=== PATIENT | male | born 1985 | race Caucasian/White ===

== ENCOUNTER 2021-02-12 09:27 | Emergency (ER) | payer BC, SELFPAY ==
[2021-02-12 09:51] VITALS: BP 126/70; PULSE 67; RESP 16; TEMP 36.8; O2SAT 97; BMI 23.5
--- NOTE | 2021-02-12 10:16 | ED.GENADULT ---
HPI - General Adult General Chief complaint: Skin/Abscess/Foreign Body Stated complaint: ? tattoo infected Time Seen by Provider: 02/12/21 10:16 Source: patient Mode of arrival: ambulatory Limitations: no limitations History of Present Illness HPI narrative: Patient is here today for complaining of redness and rash like area surrounding where he had his new tattoo done on Tuesday. Patient reports no pruritus, some clear drainage and red and raised like rash. Patient denies fever or chills. The rash is not spreading Related Data Previous Rx's Medication Instructions Recorded cephalexin 500 mg capsule 500 mg PO QID 7 Days #28 cap 02/12/21 doxycycline hyclate 100 mg capsule 100 mg PO BID #14 cap 02/12/21 Allergies Allergy/AdvReac Type Severity Reaction Status Date / Time No Known Allergies Allergy Unverified 02/14/20 15:33 Review of Systems Review of Systems: Constitutional : No Weight loss, No Fever, No Chills, No Night Sweats, No Fatigue, No Malaise ENT/Mouth : No Hearing loss, No Ear Pain, No Nasal Congestion, No Sinus Pain, No Hoarseness, No sore throat, No Rhinorrhea, No Swallowing Difficulty Eyes: No Eye Pain, No Swelling, No Redness, No Foreign Body, No Discharge, No Vision Changes Cardiovascular : No Chest Pain, No SOB, No Dyspnea on Exertion, No Orthopnea, No Edema, No Palpitations Respiratory : No Cough, No Sputum, No Wheezing, No Smoke Exposure, No Dyspnea Gastrointestinal : No Nausea, No Vomiting, No Diarrhea, No Constipation, No abdominal Pain, No Hematochezia, No Melena Genitourinary : no irregular bleeding, No Dysuria, No Urinary Frequency, No Hematuria, No Urinary Incontinence, No Urgency, No Flank Pain, No Urinary Flow Changes, No Hesitancy Musculoskeletal : No joint pain, No Myalgias, No Joint Swelling Skin : No Skin Lesions, rash, redness to his left leg Yes all other systems are reviewed and are negative [facility] Past Medical History Medical History (Updated 02/12/21 @ 10:29 by ALCIDES Soto-) No known health problems Social History Social History Advance Directives: No Physical Exam Vital Signs: Vital Signs: Last Vital Signs Temp 98.3 F 02/12/21 09:51 Pulse 67 02/12/21 09:51 Resp 16 02/12/21 09:51 BP 126/70 02/12/21 09:51 Pulse Ox 97 02/12/21 09:51 Body Mass Index 23.5 Const: General: healthy appearing, no acute distress and well developed Nutritional Appearance: well nourished Orientation/consciousness: patient oriented x3 HENMT: Head: Yes normal to inspection, Yes normocephalic and Yes atraumatic Ears: hearing grossly normal bilaterally General nose exam: Normal external nose present Face and sinus: Yes normal facial exam Mouth: Normal oral and palatal mucosa present Neck: Neck: Yes normal visual inspection, Yes full ROM and Yes trachea midline Thyroid: Thyroid normal Resp: Auscultation: clear to auscultation bilaterally Cardio: Rate: regular rate Rhythm: regular rhythm Heart sounds: S1 normal heart sound present and S2 normal heart sound present GI: Inspection: Yes normal to inspection and No distended Palpation (GI): No hepatosplenomegaly present Auscultation: normal bowel sounds Skin: General skin exam: elasticity normal, turgor normal, dry skin and other (Left thigh red rash like area where new tattoo was done on Tuesday. ) Neuro: General: patient oriented x3 Course Course Course Narrative: 35 years old male is here today for left thigh rash that started right after he got new tattoo on Tuesday. Patient denies pruritus, spreading. Denies fever or chills. Will medicate him with doxycycline and Keflex and send him home on 7 day therapy. Discharge Plan Discharge Clinical Impression: Cellulitis Qualifiers: Site of cellulitis: extremity Site of cellulitis of extremity: lower extremity Laterality: left Qualified Code(s): L03.116 - Cellulitis of left lower limb Patient Disposition: Home, Self-Care Instructions: Cellulitis (ED) Additional Instructions: You were seen here today for possible infected tatoo. You will be placed on antibiotics for 7 days. Make sure that you finish all of the antibiotics. You may return to emergency department if your symptoms will get worse or if your experience any additional concerning symptoms. Prescriptions: New doxycycline hyclate 100 mg capsule 100 mg PO BID Qty: 14 RF: 0 cephalexin 500 mg capsule 500 mg PO QID 7 Days Qty: 28 RF: 0
[2021-02-12] MEDS: cephALEXin 500 MG CAPSULE PO (10:41)
== END 2021-02-12 10:45 | disposition home or self-care (01) ==
PROVIDERS: Emergency Provider Emergency Medicine; PCP Internal Medicine
DX: L03.116 Cellulitis of left lower limb (principal); Z79.899 Other long term (current) drug therapy
CPT/HCPCS: 99283

== ENCOUNTER 2021-05-18 10:56 | Outpatient (REF) | payer BC, SELFPAY ==
[2021-05-18 10:59] LABS: MANUAL DIFF FLAG NO
[2021-05-18 11:19] LABS: Basophils Percent Auto 0.4 % (0-2); Eosinophils Absolute Auto 0.2 X10*3/uL (0.0-0.4); Eosinophils Percent Auto 2.2 % (0-4); Hemoglobin 16.6 g/dl (14.0-18.0); Imm Gran Abs Auto 0.03 X10*3/uL (0.00-0.03); Imm Gran Pct Auto 0.3 % (0.0-0.4); Lymphocytes Absolute Auto 2.9 X10*3/uL (1.2-4.9); Lymphocytes Percent Auto 32.7 % (20-40); Mean Corpuscular HGB Conc 33.9 g/dl (31.0-36.0); Mean Corpuscular Hemoglobin 31.9 pg (27.0-33.0); Mean Platelet Volume 10.7 fL (9.4-12.4); Monocytes Absolute Auto 0.8 X10*3/uL (0.1-1.2); Monocytes Percent Auto 9.4 % (2-11); Neutrophils Absolute Auto 4.9 x10*3/uL (2.0-8.3); Platelet Count 250 X10*3/uL (160-400); Red Blood Count 5.21 X10*6/uL (4.60-5.80); Red Cell Distribution Width 11.6 % (11.0-16.0)
[2021-05-18 11:24] LABS: Appearance Urine CLEAR; Color Urine YELLOW; Glucose Urine UA NEG (NEG); Leukocyte Esterase Urine NEG (NEG); Nitrite Urine NEG (NEG); PH 6.5 (5.0-8.0); Specific Gravity - Urine 1.015 (1.005-1.025); Urine Blood NEG (NEG); Urine Ketones NEG (NEG); Urine Protein NEG (NEG-TRACE)
[2021-05-18 11:29] LABS: Alanine Aminotransferase 22 U/L (0-40); Albumin Level 4.4 g/dL (3.5-5.0); Alkaline Phosphatase 71 U/L (39-117); Anion Gap 11 (12-20); Aspartate Amino Transferase 23 U/L (5-37); Bilirubin Total 0.6 mg/dL (0.0-1.0); Blood Urea Nitrogen 14 mg/dL (9-16); Calcium 9.7 mg/dL (8.4-10.2); Carbon Dioxide 26 mmol/L (22-29); Chloride 107 mmol/L (96-108); Cholesterol 226 mg/dL; Estimated Glomerular Filt Rate > 60; Glucose Fasting 84 mg/dL (60-99); HDL Cholesterol 63 mg/dL; LDL Cholesterol Calculated 144 mg/dl; Potassium 4.2 mmol/L (3.3-5.1); Sodium 140 mmol/L (135-145); Total Protein 7.5 g/dL (6.5-8.0); Triglycerides 98 mg/dL
== END 2021-05-18 10:57 | disposition home or self-care (01) ==
LOC: HO.LNP 10:56
PROVIDERS: PCP Internal Medicine; Visit Provider Internal Medicine
DX: Z00.00 Encounter for general adult medical examination without abnormal findings (principal)
CPT/HCPCS: 80053; 80061; 81003; 85025

== ENCOUNTER 2021-12-25 10:38 | Outpatient (REF) | payer BC, SELFPAY ==
--- NOTE | ~2021-12-25 | US_ITS ---
EXAMINATION: US SCROTUM CLINICAL INFORMATION: Testicular nodule. COMPARISON: None TECHNIQUE: A sonogram of the scrotum was performed assessing sebastian-scale appearance and color Doppler flow. Spectral Doppler analysis of the arterial and venous flow were performed in the testes bilaterally. FINDINGS: RIGHT: Right testicle measures 4.6 x 2.3 x 3.4 cm, volume 18.8 mL. No focal testicular parenchymal lesions are visualized. Spectral Doppler analysis of the arterial and venous flow is normal in the right testis. Right epididymal head is asymmetrically increased in size. No right hydrocele or varicocele is seen. Right epididymal Doppler flow is normal. LEFT: Left testicle measures 4.0 x 2.2 x 3.4 cm, volume 15.6 mL. No focal testicular parenchymal lesions are visualized. Spectral Doppler analysis of the arterial and venous flow is normal in the left testis. Left epididymal head is normal in size. No left hydrocele or varicocele is seen. Left epididymal Doppler flow is normal. OTHERS: In the area of the referred nodule by the patient, there is a 0.3 x 0.2 x 0.4 cm simple appearing cyst along the surface/capsule of the right testicle. US/US scrotum IMPRESSION: The palpable abnormality as pointed by the patient appears to corresponds to a very small cyst along the capsule of the right testicle. The right epididymal head appears to be mildly asymmetrically increased in size when compared to the left but without significant hyperemia. This finding is nonspecific and could be associated with early epididymitis in the appropriate clinical setting or anatomic variants. Recommend a follow-up examination to reassess if clinically deemed appropriate. If the palpable abnormality increases or becomes symptomatic, an interval ultrasound or cross-sectional imaging is recommended to reassess.
== END 2021-12-25 10:39 | disposition home or self-care (01) ==
LOC: HO.US 10:38
PROVIDERS: PCP Internal Medicine; Visit Provider Internal Medicine
DX: N50.89 Other specified disorders of the male genital organs (principal)
CPT/HCPCS: 76870

== ENCOUNTER 2022-03-31 10:09 | Outpatient (REF) | payer BC, SELFPAY ==
--- NOTE | 2022-03-31 10:21 | ECG_ITS ---
Test Reason : qtc check Blood Pressure : / mmHG Vent. Rate : 062 BPM Atrial Rate : 062 BPM P-R Int : 142 ms QRS Dur : 096 ms QT Int : 374 ms P-R-T Axes : 039 047 037 degrees QTc Int : 379 ms Normal sinus rhythm Normal ECG No previous ECGs available Referred By: Randi Whitmore Electronically Signed By:SAVI VALLE MD
[2022-03-31 10:27] LABS: MANUAL DIFF FLAG NO
[2022-03-31 10:46] LABS: Basophils Absolute Auto 0.1 X10*3/uL (0.0-0.2); Basophils Percent Auto 0.5 % (0-2); Eosinophils Absolute Auto 0.2 X10*3/uL (0.0-0.4); Eosinophils Percent Auto 1.3 % (0-4); Hematocrit 50.2 % (42.0-52.0); Hemoglobin 16.6 g/dl (14.0-18.0); Imm Gran Abs Auto 0.04 X10*3/uL (0.00-0.03); Imm Gran Pct Auto 0.4 % (0.0-0.4); Lymphocytes Absolute Auto 2.7 X10*3/uL (1.2-4.9); Lymphocytes Percent Auto 24.2 % (20-40); Mean Corpuscular HGB Conc 33.1 g/dl (31.0-36.0); Mean Corpuscular Hemoglobin 30.8 pg (27.0-33.0); Mean Corpuscular Volume 93.1 fL (80.0-98.0); Mean Platelet Volume 10.4 fL (9.4-12.4); Monocytes Absolute Auto 0.8 X10*3/uL (0.1-1.2); Monocytes Percent Auto 7.2 % (2-11); Neutrophils Absolute Auto 7.4 x10*3/uL (2.0-8.3); Neutrophils Percent Auto 66.4 % (45-73); Platelet Count 245 X10*3/uL (160-400); Red Blood Count 5.39 X10*6/uL (4.60-5.80); White Blood Count 11.2 X10*3/uL (4.8-10.8)
[2022-03-31 11:21] LABS: Alanine Aminotransferase 24 U/L (0-40); Albumin Level 4.7 g/dL (3.5-5.0); Alkaline Phosphatase 84 U/L (39-117); Anion Gap 13 (12-20); Aspartate Amino Transferase 22 U/L (5-37); Bilirubin Total 0.3 mg/dL (0.0-1.0); Blood Urea Nitrogen 11 mg/dL (9-16); Carbon Dioxide 25 mmol/L (22-29); Chloride 104 mmol/L (96-108); Estimated Glomerular Filt Rate > 60; Glucose Random 83 mg/dL (60-115); Potassium 4.4 mmol/L (3.3-5.1); Sodium 138 mmol/L (135-145); Total Protein 7.7 g/dL (6.5-8.0)
[2022-03-31 11:32] LABS: Thyroid Stimulating Hormone 1.27 uIU/mL (0.32-4.0)
== END 2022-03-31 10:10 | disposition home or self-care (01) ==
LOC: HO.LAB 10:09
PROVIDERS: PCP Internal Medicine; Visit Provider Psychiatry & Neurology Psychiatry
DX: Z79.899 Other long term (current) drug therapy (principal)
CPT/HCPCS: 36415; 80053; 84443; 85025; 93005

== ENCOUNTER 2022-05-03 14:39 | Outpatient (REF) | payer BC, SELFPAY ==
[2022-05-03 16:03] LABS: Lithium 0.19 mmol/L (0.60-1.20)
[2022-05-03 16:34] LABS: Anion Gap 13 (12-20); Blood Urea Nitrogen 13 mg/dL (9-16); Carbon Dioxide 27 mmol/L (22-29); Chloride 103 mmol/L (96-108); Estimated Glomerular Filt Rate > 60; Glucose Random 89 mg/dL (60-115); Potassium 4.7 mmol/L (3.3-5.1); Sodium 138 mmol/L (135-145); Thyroid Stimulating Hormone 1.98 uIU/mL (0.32-4.0)
== END 2022-05-03 14:40 | disposition home or self-care (01) ==
LOC: HO.LAB 14:39
PROVIDERS: PCP Internal Medicine; Visit Provider Psychiatry & Neurology Psychiatry
DX: Z79.899 Other long term (current) drug therapy (principal)
CPT/HCPCS: 36415; 80048; 80178; 84443

== ENCOUNTER 2022-06-08 11:31 | Outpatient (REF) | payer BC, SELFPAY ==
[2022-06-08 13:11] LABS: Alanine Aminotransferase 18 U/L (0-40); Albumin Level 4.8 g/dL (3.5-5.0); Alkaline Phosphatase 89 U/L (39-117); Anion Gap 14 (12-20); Aspartate Amino Transferase 22 U/L (5-37); Bilirubin Total 0.4 mg/dL (0.0-1.0); Blood Urea Nitrogen 14 mg/dL (9-16); Carbon Dioxide 26 mmol/L (22-29); Chloride 103 mmol/L (96-108); Estimated Glomerular Filt Rate > 60; Glucose Random 89 mg/dL (60-115); Lithium 0.35 mmol/L (0.60-1.20); Potassium 4.8 mmol/L (3.3-5.1); Sodium 138 mmol/L (135-145); Total Protein 7.6 g/dL (6.5-8.0)
[2022-06-08 13:33] LABS: Thyroid Stimulating Hormone 1.81 uIU/mL (0.32-4.0)
== END 2022-06-08 11:32 | disposition home or self-care (01) ==
LOC: HO.LAB 11:31
PROVIDERS: PCP Internal Medicine; Visit Provider Psychiatry & Neurology Psychiatry
DX: Z79.899 Other long term (current) drug therapy (principal)
CPT/HCPCS: 36415; 80053; 80178; 84443

== ENCOUNTER 2022-07-16 10:06 | Outpatient (REF) | payer BC, SELFPAY ==
[2022-07-16 11:07] LABS: Lithium 0.54 mmol/L (0.60-1.20)
[2022-07-16 11:13] LABS: Alanine Aminotransferase 19 U/L (0-40); Albumin Level 4.3 g/dL (3.5-5.0); Alkaline Phosphatase 94 U/L (39-117); Anion Gap 13 (12-20); Aspartate Amino Transferase 19 U/L (5-37); Bilirubin Total 0.3 mg/dL (0.0-1.0); Blood Urea Nitrogen 13 mg/dL (9-16); Calcium 9.3 mg/dL (8.4-10.2); Carbon Dioxide 25 mmol/L (22-29); Chloride 105 mmol/L (96-108); Estimated Glomerular Filt Rate > 60; Glucose Random 126 mg/dL (60-115); Potassium 4.2 mmol/L (3.3-5.1); Sodium 139 mmol/L (135-145); Total Protein 6.7 g/dL (6.5-8.0)
== END 2022-07-16 10:07 | disposition home or self-care (01) ==
LOC: HO.LAB 10:06
PROVIDERS: PCP Internal Medicine; Visit Provider Psychiatry & Neurology Psychiatry
DX: Z79.899 Other long term (current) drug therapy (principal)
CPT/HCPCS: 36415; 80053; 80178; 84443

== ENCOUNTER 2023-01-17 10:56 | Outpatient (REF) | payer BC, SELFPAY ==
[2023-01-17 11:02] LABS: MANUAL DIFF FLAG NO
[2023-01-17 11:28] LABS: Basophils Percent Auto 0.5 % (0-2); Eosinophils Absolute Auto 0.2 X10*3/uL (0.0-0.4); Hematocrit 50.7 % (42.0-52.0); Imm Gran Abs Auto 0.02 X10*3/uL (0.00-0.03); Imm Gran Pct Auto 0.2 % (0.0-0.4); Lymphocytes Absolute Auto 3.3 X10*3/uL (1.2-4.9); Mean Corpuscular HGB Conc 33.5 g/dl (31.0-36.0); Mean Corpuscular Hemoglobin 30.7 pg (27.0-33.0); Mean Corpuscular Volume 91.5 fL (80.0-98.0); Mean Platelet Volume 10.2 fL (9.4-12.4); Monocytes Absolute Auto 0.6 X10*3/uL (0.1-1.2); Monocytes Percent Auto 7.8 % (2-11); Neutrophils Absolute Auto 3.9 x10*3/uL (2.0-8.3); Neutrophils Percent Auto 48.5 % (45-73); Platelet Count 237 X10*3/uL (160-400); Red Blood Count 5.54 X10*6/uL (4.60-5.80); Red Cell Distribution Width 12.1 % (11.0-16.0); White Blood Count 8.1 X10*3/uL (4.8-10.8)
[2023-01-17 11:29] LABS: Appearance Urine Clear; Color Urine Yellow; Glucose Urine UA Negative (Negative); Leukocyte Esterase Urine Negative (Negative); Nitrite Urine Negative (Negative); PH 6.5 (5.0-9.0); Urine Blood Negative (Negative); Urine Ketones Negative (Negative); Urine Protein Negative (Neg-Trace)
[2023-01-17 11:35] LABS: Bacteria Urine None Seen (None Seen); Hyaline Casts Urine 0-2 /LPF (0-2); RBC Urine 0-2 /HPF (0-2); Squamous Epithelial Cell Urine 0-2 /HPF (0-2); WBC Urine 0-5 /HPF (0-5)
[2023-01-17 11:37] LABS: Alanine Aminotransferase 21 U/L (0-40); Albumin Level 4.5 g/dL (3.5-5.0); Alkaline Phosphatase 65 U/L (39-117); Anion Gap 11 (12-20); Aspartate Amino Transferase 18 U/L (5-37); Bilirubin Total 0.5 mg/dL (0.0-1.0); Blood Urea Nitrogen 13 mg/dL (9-16); Carbon Dioxide 25 mmol/L (22-29); Chloride 110 mmol/L (96-108); Cholesterol 236 mg/dL (<200); Estimated Glomerular Filt Rate > 60; Glucose Fasting 89 mg/dL (60-99); HDL Cholesterol 54 mg/dL (>40); LDL Cholesterol Calculated 158 mg/dL (<100); Potassium 4.3 mmol/L (3.3-5.1); Sodium 142 mmol/L (135-145); Total Protein 7.6 g/dL (6.5-8.0); Triglycerides 120 mg/dL (<150)
== END 2023-01-17 10:57 | disposition home or self-care (01) ==
LOC: HO.LNP 10:56
PROVIDERS: Visit Provider Internal Medicine
DX: Z00.00 Encounter for general adult medical examination without abnormal findings (principal); Z20.2 Contact with and (suspected) exposure to infections with a predominantly sexual mode of transmission
CPT/HCPCS: 80053; 80061; 81001; 85025

== ENCOUNTER 2023-07-25 10:40 | Outpatient (REF) | payer BC, SELFPAY ==
[2023-07-25 12:08] LABS: HBS Num1 > 1000.00 mIU/mL (0-7.99); HBc Num1 0.03 S/CO (0.00-0.79); HBsAGNum1 0.33 S/CO (0.00-0.99); HIV AB/AG Nonreactive (Nonreactive); HIV Num 1 0.06 S/CO (0.00-0.99); Hepatitis A Antibody IgM 0.27 Index (0-0.79); Hepatitis B Core Antibody Nonreactive (Nonreactive); Hepatitis B Surface Antigen Negative (Negative); ~HepC Num1 0.08 S/CO (0.00-0.79); ~Hepatitis A Antibody IgM Nonreactive (Nonreactive); ~Hepatitis B Surface Antibody REACTIVE (Nonreactive); ~Hepatitis C Antibody Nonreactive (Nonreactive)
[2023-07-25 15:04] LABS: CT PCR NOT DETECTED (Not Detect.); NG PCR NOT DETECTED (Not Detect.)
== END 2023-07-25 10:41 | disposition home or self-care (01) ==
LOC: HO.LAB 10:40
PROVIDERS: PCP Internal Medicine; Visit Provider Internal Medicine
DX: Z11.4 Encounter for screening for human immunodeficiency virus [HIV] (principal); Z20.2 Contact with and (suspected) exposure to infections with a predominantly sexual mode of transmission
CPT/HCPCS: 0353U; 86704; 86706; 86709; 86803; 87340; 87389

== ENCOUNTER 2024-01-23 10:32 | Outpatient (REF) | payer BC, SELFPAY ==
[2024-01-23 10:39] LABS: MANUAL DIFF FLAG NO
[2024-01-23 10:46] LABS: Basophils Percent Auto 0.5 % (0-2); Eosinophils Absolute Auto 0.2 X10*3/uL (0.0-0.4); Eosinophils Percent Auto 2.7 % (0-4); Hematocrit 49.1 % (42.0-52.0); Hemoglobin 16.6 g/dl (14.0-18.0); Imm Gran Abs Auto 0.03 X10*3/uL (0.00-0.03); Imm Gran Pct Auto 0.4 % (0.0-0.4); Lymphocytes Absolute Auto 2.8 X10*3/uL (1.2-4.9); Lymphocytes Percent Auto 37.4 % (20-40); Mean Corpuscular HGB Conc 33.8 g/dl (31.0-36.0); Mean Corpuscular Hemoglobin 31.7 pg (27.0-33.0); Mean Corpuscular Volume 93.7 fL (80.0-98.0); Mean Platelet Volume 10.3 fL (9.4-12.4); Monocytes Absolute Auto 0.7 X10*3/uL (0.1-1.2); Monocytes Percent Auto 9.5 % (2-11); Neutrophils Absolute Auto 3.7 x10*3/uL (2.0-8.3); Neutrophils Percent Auto 49.5 % (45-73); Platelet Count 228 X10*3/uL (160-400); Red Blood Count 5.24 X10*6/uL (4.60-5.80); Red Cell Distribution Width 11.7 % (11.0-16.0); White Blood Count 7.5 X10*3/uL (4.8-10.8)
[2024-01-23 10:47] LABS: Appearance Urine Clear; Color Urine Yellow; Glucose Urine UA Negative (Negative); Leukocyte Esterase Urine Negative (Negative); Nitrite Urine Negative (Negative); Urine Blood Negative (Negative); Urine Ketones Negative (Negative); Urine Protein Trace mg/dL (Neg-Trace)
[2024-01-23 10:49] LABS: Bacteria Urine None Seen (None Seen); Hyaline Casts Urine 0-2 /LPF (0-2); RBC Urine 0-2 /HPF (0-2); Squamous Epithelial Cell Urine 0-2 /HPF (0-2); WBC Urine 0-5 /HPF (0-5)
[2024-01-23 11:36] LABS: Alanine Aminotransferase 20 U/L (0-40); Albumin Level 4.4 g/dL (3.5-5.0); Alkaline Phosphatase 66 U/L (39-117); Anion Gap 14 (12-20); Aspartate Amino Transferase 20 U/L (5-37); Bilirubin Total 0.4 mg/dL (0.0-1.0); Blood Urea Nitrogen 13 mg/dL (9-16); Calcium 9.7 mg/dL (8.4-10.2); Carbon Dioxide 24 mmol/L (22-29); Chloride 107 mmol/L (96-108); Cholesterol 229 mg/dL (<200); Estimated Glomerular Filt Rate > 60; Glucose Fasting 82 mg/dL (60-99); HDL Cholesterol 59 mg/dL (>40); LDL Cholesterol Calculated 149 mg/dL (<100); Potassium 3.8 mmol/L (3.3-5.1); Sodium 141 mmol/L (135-145); Total Protein 7.5 g/dL (6.5-8.0); Triglycerides 107 mg/dL (<150)
== END 2024-01-23 10:33 | disposition home or self-care (01) ==
LOC: HO.LNP 10:32
PROVIDERS: Visit Provider Internal Medicine
DX: Z00.00 Encounter for general adult medical examination without abnormal findings (principal)
CPT/HCPCS: 80053; 80061; 81001; 85025

== ENCOUNTER 2025-04-20 13:14 | Emergency (ER) | payer BC, SELFPAY ==
--- OUTSIDE RECORDS SUMMARY | 2024-01-23 03:00 | XMS_ITS ---
Author Organization Chava Reddy MD Address [address] [place], [place] [id number] Care Team Providers Care Records Section Supervisor Name Role Phone Chava Reddy Primary Care Provider Results Component Value Reference Range Notes Complete Blood Count Auto Di ff Reviewed date:01/23/2024 12:40:17 PM Interpretation: Performing Lab:[facility], [address] [place] [id number] Notes/Report: White Blood Count 7.5 4.8-10.8 X10*3/uL Red Blood Count 5.24 4.60-5.80 X10*6/uL Hemoglobin 16.6 14.0-18.0 g/dl Hematocrit 49.1 42.0-52.0 % Mean Corpuscular Volume 93.7 80.0-98.0 fL Mean Corpuscular Hemoglobin 31.7 27.0-33.0 pg Mean Corpuscular HGB Conc 33.8 31.0-36.0 g/dl Red Cell Distribution Width 11.7 11.0-16.0 % Platelet Count 228 160-400 X10*3/uL Mean Platelet Volume 10.3 9.4-12.4 fL Neutrophils Percent Auto 49.5 45-73 % Imm Gran Pct Auto 0.4 0.0-0.4 % Lymphocytes Percent Auto 37.4 20-40 % Monocytes Percent Auto 9.5 2-11 % Eosinophils Percent Auto 2.7 0-4 % Basophils Percent Auto 0.5 0-2 % NRBC Pct Auto 0.0 0.0-0.2 /100WBC Neutrophils Absolute Auto 3.7 2.0-8.3 x10*3/u L Imm Gran Abs Auto 0.03 0.00-0.03 X10*3/uL Lymphocytes Absolute Auto 2.8 1.2-4.9 X10*3/u L Monocytes Absolute Auto 0.7 0.1-1.2 X10*3/uL Eosinophils Absolute Auto 0.2 0.0-0.4 X10*3/u L Basophils Absolute Auto 0.0 0.0-0.2 X10*3/uL NRBC Abs Auto 0.000 0.0-0.012 X10*3/uL Comprehensive Tibbie. Panel Fa st Reviewed date:01/23/2024 12:23:12 PM Interpretation: Performing Lab:[address] [phone] Notes/Report: Sodium 141 135-145 mmol/L Potassium 3.8 3.3-5.1 mmol/L Chloride 107 96-108 mmol/L Carbon Dioxide 24 22-29 mmol/L Anion Gap 14 12-20 Blood Urea Nitrogen 13 9-16 mg/dL Creatinine 0.91 0.5-1.4 mg/dL Estimated Glomerular Filt Rate > 60 NOTE: For -Georgian individuals, multiply the result by 1.210. Chronic Kidney Disease: Estimated GFR < 60 mL/min/1.73m2 Severe Kidney Disease: Estimated GFR < 15 mL/min/1.73m2 Glucose Fasting 82 60-99 mg/dL Calcium 9.7 8.4-10.2 mg/dL Bilirubin Total 0.4 0.0-1.0 mg/dL Aspartate Amino Transferase 20 5-37 U/L Alanine Aminotransferase 20 0-40 U/L Total Protein 7.5 6.5-8.0 g/dL Albumin Level 4.4 3.5-5.0 g/dL Alkaline Phosphatase 66 39-117 U/L Lipid Panel Reviewed date:01/23/2024 12:22:25 PM Interpretation: Performing Lab:[address] [id number] Notes/Report: Triglycerides 107 <150 mg/dL Desirable Triglyceride: less than 150 mg/dL Borderline High Triglyceride 150-199 mg/dL High Triglyceride: 200-499 mg/dL Very High Triglyceride: greater than or equal to 5OO mg/dL Cholesterol 229 <200 mg/dL Desirable Cholesterol: less than 200 mg/dL Borderline High Cholesterol: 200-239 mg/dL High Cholesterol: greater than 239 mg/dL LDL Cholesterol Calculated 149 <100 mg/dL Desirable LDL: less than 100 mg/dL Near Optimal/Above Optimal LDL: 110-129 mg/dL Borderline High LDL: 130-159 mg/dL High LDL: 160-189 mg/dL Very High LDL: greater than or equal to 190 mg/dL HDL Cholesterol 59 >40 mg/dL Desirable HDL: greater than 40 mg/dL Note: This HDL assay may give artificially low results in patients with liver disease. UA ClnCatch+Micro w/rflx Cul t Reviewed date:01/23/2024 12:39:38 PM Interpretation: Performing Lab:[facility], [address] [place] [phone] Notes/Report: Urine, Clean Catch Color Urine Yellow Appearance Urine Clear PH 6.0 5.0-9.0 Glucose Urine UA Negative Negative mg/dL Urine Blood Negative Negative Specific [place] - Urine 1.020 1.005-1.025 Urine Protein Trace Neg-Trace mg/dL Urine Ketones Negative Negative mg/dL Nitrite Urine Negative Negative Leukocyte Esterase Urine Negative Negative RBC Urine 0-2 0-2 /HPF WBC Urine 0-5 0-5 /HPF Squamous Epithelial Cell Urine 0-2 0-2 /HPF Bacteria Urine None Seen None Seen Hyaline Casts Urine 0-2 0-2 /LPF REASON FOR VISIT FASTING LABS Medications Medication SIG (Take, Route, Frequency, Duration) Notes Start Date End Date Status Citalopram Hydrobromide 10 MG TAKE 1 TABLET BY MOUTH EVERY DAY Orally Once a day Active SEROquel 25 MG 1 tablet at bedtime Orally Once a day Active Wellbutrin SR 150 MG 1 tablet in the mor sanjay Orally Once a day for 30 day(s) 03/03/2020 Not-Taking Ocuflox 0.3 % 1 drop into affected eye Ophthalmic Four times a day for 10 days 12/08/2021 Not-Taki ng Tadalafil 10 MG 1 tablet as needed Orally Once a day as needed 09/19/2020 Active Encounters Encounter Location Date Provider Diagnosis Chava Reddy MD [address] [place] [address] Drive [address] [place], [place] [phone] 01/23/2024 Chava Reddy Blood tests for routine general physical examination Z00.00 Assessments Encounter Date Diagnosis (ICD Code) Assessment Notes Treatment Notes Treatment Clinical Notes Section Notes 01/23/2024 Blood tests for routine general physical examination (ICD-10 - Z00.00) Plan Of Treatment Next Appt Details Provider Name:Chava moore, 06/18/2025 07:00:00 AM, [address], [address], [place], [place], [phone], Provider Name:Chava moore, 06/24/2025 09:30:00 AM, [address], [address], [place], [place], [phone], Progress Notes * MARCIALKavon SDOB: (39 yo M)Acc No.[id number]:01/23/2024 Progress Note Patient: Kavon PARRA Provider: Johnny Reddy MD :1985 A ge:38 Y S ex:Male Date:01/23/2024 Address:[address] [place], [place] [id number] Subjective: * Chief Complaints: * 1 . FASTING LABS. * Medical History: * Medications: T aking Tadalafil 10 MG Tablet 1 tablet as needed Orally Once a day as needed , Taking SEROquel 25 MG Tablet 1 tablet at bedtime Orally Once a day , Taking Citalopram Hydrobromide 10 MG Tablet TAKE 1 TABLET BY MOUTH EVERY DAY Orally Once a day , Not-Taking/PRN Ocuflox 0.3 % Solution 1 drop into affected eye Ophthalmic Four times a day , Not-Taking/PRN Wellbutrin SR 150 MG Tablet Extended Release 12 Hour 1 tablet in the morning Orally Once a day Objective: * Vitals: Assessment: * Assessment: 1. B lood tests for routine general physical examination - Z00.00 (Primary) Plan: * Treatment: * Procedure Codes: 3 6415 VENIPUNCT, ROUTINE* * * The named appointment provid er may or may not be the originator of this progress note, and it is not deemed complete until electronically signed by the appointment provider. Sign off status: Pending * Provider: Johnny Reddy MD Date: 0 01/23/2024 Generated for Jj aponte/Elly/Leonaitting on: 1 06/20/2024 01:47 PM EST
--- OUTSIDE RECORDS SUMMARY | 2024-06-07 09:30 | XMS_ITS ---
Author Organization Chava Reddy MD Address [address] [place], [place] [id number] Care Team Providers Care Dumpster Operator Name Role Phone Chava Reddy Primary Care Provider [phone] Allergies No Known Allergies Results Component Value Reference Range Notes Occult Blood, Stool, Guaiac Reviewed date:06/07/2024 03:28:24 PM Interpretation:Negative Performing Lab: Notes/Report: Negative Occult Blood, Stool, Guaiac Neg REASON FOR VISIT ANNUAL EXAM, Has FMLA papers to be filled out Medications Medication SIG (Take, Route, Frequency, Duration) Notes Start Date End Date Status Citalopram Hydrobromide 10 MG TAKE 1 TABLET BY MOUTH EVERY DAY FOR 90 DAYS for 90 Active Ocuflox 0.3 % 1 drop into affected eye Ophthalmic Four times a day for 10 days 12/08/2021 Not-Taki ng Wellbutrin SR 150 MG 1 tablet in the mor sanjay Orally Once a day for 30 day(s) 03/03/2020 Not-Taking Tadalafil 10 MG 1 tablet as needed Orally Once a day as needed 09/19/2020 Active SEROquel 300 MG 1 tablet at bedtime Orally Once a day Active Social History Tobacco Use: Social History Observation Description Date Details (start date - stop date) Current Smoker NA - NA Tobacco Use/Smoking Question Answer Notes Patient is a current smoker How often do you smoke cigarettes? every day How many cigarettes a day do you smoke? 11-20 How soon after you wake up d o you smoke your first cigarette? within 5 minutes Are you interested in quitting? Thinking about q uitting Additional Findings: Tobacco User Curren t cigarette smoker, not currently using another form of tobacco Alcohol Screen Question Answer Notes Did you have a drink containing alcohol in the p ast year? No Points 0 Interpretation Negative Section Notes: alcohol free 01-10-2022 Patie nt vapes QD Vital Signs Blood pressure systolic 120 mm Hg 06/07/19 25 Blood pressure diastolic 80 mm Hg 025 Height 67 in 06/07/2024 Weight 158 lbs 06/07/2024 BMI 24.74 kg/m2 06/07/2024 weight is up 5 pounds since 08-08-23 Encounters Encounter Location Date Provider Diagnosis Chava Reddy MD [address] [place], [place] [id number] 06/07/2024 Chava Reddy Bipolar depression F31.9 ; Annual physical exam Z00.00 ; Smoker F17.200 ; Colon cancer screening Z12.11 and Depression screening Z13.31 Assessments Encounter Date Diagnosis (ICD Code) Assessment Notes Treatment Notes Treatment Clinical Notes Section Notes 06/07/2024 Bipolar depression (ICD-10 - F31.9) has a counsellor and a psychiatrist and is doing well, will continue current regiment 06/07/2024 Annual physical exam (ICD-10 - Z00.00) labs reviewed and discussed with patient 06/07/2024 Smoker (ICD-10 - F17.200) said he is thinking about quitting, reinforced need to quit 06/07/2024 Colon cancer screening (ICD-10 - Z12.11) guaiac negative 06/07/2024 Depression screening (ICD-10 - Z13.31) negative screen 06/07/2024 Other went over all t he results with him Plan Of Treatment Treatment Notes Assessment Notes Bipolar depression has a counsellor and a psychiatrist and is doing well, will continue current regiment Annual physical exam labs reviewed and d iscussed with patient Smoker said he is thinking about quitting, reinforced need to quit Colon cancer screening guaiac negative Depression screening negative screen Other went over all the re sults with him Next Appt Details Follow Up: 6 Months, Reason: Provider Name:Chava moore, 06/18/2025 07:00:00 AM, [address], [address], [place], [place], [phone], Provider Name:Chava moore, 06/24/2025 09:30:00 AM, [address], [address], [place], [place], [phone], Progress Notes * Kavon MITCHELL SDOB: (38 yo M)Acc No.[id number]:06/07/2024 Progress Notes Patient: Kavon Torres Provider: Johnny Reddy MD :1985 A ge:38 Y S ex:Male Date:06/07/2024 Address: [address], [place], [id number] Subjective: * Chief Complaints: * A NNUAL EXAMHas FMLA papers to be filled out * HPI: D epression Screening: PHQ-9 L ittle interest or pleasure in doing things S everal days, F eeling down, depressed, or hopeless S everal days, T rouble falling or staying asleep, or sleeping too much N early every day, F eeling tired or having little energy N early every day, P oor appetite or overeating N early every day, F eeling bad about yourself or that you are a failure, or have let yourself or your family down S everal days, T rouble concentrating on things, such as reading the newspaper or watching television N early every day, M oving or speaking so slowly that other people could have noticed; or the opposite, being so fidgety or restless that you have been moving around a lot more than usual S everal days, T houghts that you would be better off or of hurting yourself in some way N ot at all, T otal Score 1 6, I nterpretation M oderately Severe Depression. I nterpretation and Intervention D epression Screening Findings P ositve - Review of PHQ-9 found positive for depression, F ollow-Up for Depression : Existing condition. S ELSA Questions: SDOH Questions I n the past year have you been worried about losing housing? N o, I n the past year have you or any family members you live with been unable to get any of the following when it was really needed? Check all that apply: N one. C ommunication Needs: Communication Needs D oes the patient have a hearing impairment N o, D oes the patient have a vision impairment? N o, D oes the patient have a cognition impairment? N o. S ymptom(s): patient is a 38 yo male here for annual visit with review of recent labs and follow up of chronic issues, still with major depression and swinging more rapidly. last changes last month. when he takes the immediate relief it knocks him out. * ROS: G eneral/Constitutional: Patient denies f atigue , headache. C hange in appetite?denies. C hills d enies. F ever d enies. O phthalmologic: Blurred vision d enies. D ischarge d enies. P ain d enies. E NT: Patient denies d ecreased sense of smell , any loss of taste , sore throat. D ecreased hearing d enies. S ore throat d enies. S wollen glands d enies. E ndocrine: Cold intolerance d enies. E xcessive thirst d enies. H eat intolerance d enies. W eight loss d enies. R espiratory: Cough d enies. S hortness of breath at rest d enies. S hortness of breath with exertion d enies. W heezing d enies. C ardiovascular: Chest pain at rest d enies. C hest pain with exertion?denies. I rregular heartbeat d enies. S hortness of breath d enies. ? G astrointestinal: Abdominal pain d enies. C hange in bowel habits d enies. D iarrhea d enies. N ausea d enies. R ectal bleeding d enies. V omiting d enies . G enitourinary: Blood in urine d enies. D ifficulty urinating d enies. F requent urination d enies. M usculoskeletal: Patient denies m uscle aches. P ainful joints d enies. W eakness d enies. P eripheral Vascular: Patient denies r ed and blue toes. S kin: Dry skin d enies. I tching d enies. D enies?Mole(s), changes in moles, new moles or any lesions of concern. D enies P hotosensitivity. R matthias d enies. N eurologic: Dizziness d enies. F ainting d enies. H eadache?denies. * Medical History: * Surgical History: * Hospitalization/Major Diagno stic Procedure: * Family History: F ather: alive 67 yrs, diagnosed with Diabetes, Hypertension. M other: alive 66 yrs. 3 sister(s) . . Mother-Healthy, Denies mental health/substance abuse family history, Denies mental health/substance abuse family history, Denies mental health/substance abuse family history, No pertinent family medical history. * Social History: T obacco Use: T obacco Use/Smoking P atient is a c urrent smoker, H ow often do you smoke cigarettes? e very day, H ow many cigarettes a day do you smoke? 1 1-20, H ow soon after you wake up do you smoke your first cigarette? w ithin 5 minutes, A re you interested in quitting? T hinking about quitting, A dditional Findings: Tobacco User C urrent cigarette smoker, not currently using another form of tobacco. D rugs/Alcohol: A lcohol Screen D id you have a drink containing alcohol in the past year? N o, P oints 0 , I nterpretation N egative. M iscellaneous: C affeine: yes, frequency: 1 cup per day, 2 cups on weekend, more during winter months. no Children. no Community involvements. Exercise: yes, daily walks 10 miles. Housing: owning. Living with: significant other. Marital status: single. Occupation: works full-time. Pets: dogs x2. no Travel outside of the [place]. a lcohol free 01-10-2022 Patient vapes QD. * Medications: T akingTadalafil 10 MG Tablet 1 tablet as needed Orally Once a day as neededSEROquel 300 MG Tablet 1 tablet at bedtime Orally Once a dayCitalopram Hydrobromide 10 MG Tablet TAKE 1 TABLET BY MOUTH EVERY DAY FOR 90 DAYS Taking Tadalafil 10 MG Tablet 1 tablet as needed Orally Once a day as neededTaking SEROquel 300 MG Tablet 1 tablet at bedtime Orally Once a dayTaking Citalopram Hydrobromide 10 MG Tablet TAKE 1 TABLET BY MOUTH EVERY DAY FOR 90 DAYS Not-Taking/PRNOcuflox 0.3 % Solution 1 drop into affected eye Ophthalmic Four times a dayWellbutrin SR 150 MG Tablet Extended Release 12 Hour 1 tablet in the morning Orally Once a dayMedication List reviewed and reconciled with the patientNot-Taking/PRN Ocuflox 0.3 % Solution 1 drop into affected eye Ophthalmic Four times a dayNot-Taking/PRN Wellbutrin SR 150 MG Tablet Extended Release 12 Hour 1 tablet in the morning Orally Once a dayMedication List reviewed and reconciled with the patient * Allergies: N .K.D.A.yes[Allergies Verified] Objective: * Vitals: H t: 67, Wt:158, BMI:24.74, BP:120/80 weight is up 5 pounds since 08-08-23. * P ast Orders: L ab:Lipid Panel (Order Date - 01/23/2024) (Collection Date - 01/23/2024) Value Reference Range Triglycerides 107 <150 - mg/dL Cholesterol 229 H <200 - mg/dL LDL Cholesterol Calculated 149 H <100 - mg/dL HDL Cholesterol 59 >40 - mg/dL L ab:UA ClnCatch+Micro w/rflx Cult (Order Date - 01/23/2024) (Collection Date - 01/23/2024) Value Reference Range Color Urine Yellow - Appearance Urine Clear - PH 6.0 5.0-9.0 - Glucose Urine UA Negative Negative - mg/dL Urine Blood Negative Negative - Specific Emerson - Urine 1.020 1.005-1.025 - Urine Protein Trace Neg-Trace - mg/dL Urine Ketones Negative Negative - mg/dL Nitrite Urine Negative Negative - Leukocyte Esterase Urine Negative Negative - RBC Urine 0-2 0-2 - /HPF WBC Urine 0-5 0-5 - /HPF Squamous Epithelial Cell Urine 0-2 0-2 - /HP F Bacteria Urine None Seen None Seen - Hyaline Casts Urine 0-2 0-2 - /LPF L ab:Complete Blood Count Auto Diff (Order Date - 01/23/2024) (Collection Date - 01/23/2024) Value Reference Range White Blood Count 7.5 4.8-10.8 - X10*3/uL Red Blood Count 5.24 4.60-5.80 - X10*6/uL Hemoglobin 16.6 14.0-18.0 - g/dl Hematocrit 49.1 42.0-52.0 - % Mean Corpuscular Volume 93.7 80.0-98.0 - fL Mean Corpuscular Hemoglobin 31.7 27.0-33.0 - pg Mean Corpuscular HGB Conc 33.8 31.0-36.0 - g/ dl Red Cell Distribution Width 11.7 11.0-16.0 - % Platelet Count 228 160-400 - X10*3/uL Mean Platelet Volume 10.3 9.4-12.4 - fL Neutrophils Percent Auto 49.5 45-73 - % Imm Gran Pct Auto 0.4 0.0-0.4 - % Lymphocytes Percent Auto 37.4 20-40 - % Monocytes Percent Auto 9.5 2-11 - % Eosinophils Percent Auto 2.7 0-4 - % Basophils Percent Auto 0.5 0-2 - % NRBC Pct Auto 0.0 0.0-0.2 - /100WBC Neutrophils Absolute Auto 3.7 2.0-8.3 - x10* 3/uL Imm Gran Abs Auto 0.03 0.00-0.03 - X10*3/uL Lymphocytes Absolute Auto 2.8 1.2-4.9 - X10* 3/uL Monocytes Absolute Auto 0.7 0.1-1.2 - X10*3/ uL Eosinophils Absolute Auto 0.2 0.0-0.4 - X10* 3/uL Basophils Absolute Auto 0.0 0.0-0.2 - X10*3/ uL NRBC Abs Auto 0.000 0.0-0.012 - X10*3/uL L ab:Comprehensive [place]. Panel Fast (Order Date - 01/23/2024) (Collection Date - 01/23/2024) Value Reference Range Sodium 141 135-145 - mmol/L Bilirubin Total 0.4 0.0-1.0 - mg/dL Aspartate Amino Transferase 20 5-37 - U/L Alanine Aminotransferase 20 0-40 - U/L Total Protein 7.5 6.5-8.0 - g/dL Albumin Level 4.4 3.5-5.0 - g/dL Alkaline Phosphatase 66 39-117 - U/L Potassium 3.8 3.3-5.1 - mmol/L Chloride 107 96-108 - mmol/L Carbon Dioxide 24 22-29 - mmol/L Anion Gap 14 12-20 - Blood Urea Nitrogen 13 9-16 - mg/dL Creatinine 0.91 0.5-1.4 - mg/dL Estimated Glomerular Filt Rate > 60 - Glucose Fasting 82 60-99 - mg/dL Calcium 9.7 8.4-10.2 - mg/dL * Examination: G eneral Examination: GENERAL APPEARANCE: w ell developed, well nourished, in no acute distress. HEAD: n ormocephalic, atraumatic. EYES: p upils equal, round, reactive to light and accommodation, sclera non-icteric. EARS: n ormal. ORAL CAVITY: m ucosa moist. THROAT: c lear. NECK/THYROID: n марина supple, full range of motion, no cervical lymphadenopathy, no bruits. SKIN: w arm and dry, no suspicious lesions. HEART: r egular rate and rhythm, S1, S2 normal, no murmurs.? LUNGS: c lear to auscultation bilaterally. ABDOMEN: s oft, nontender, nondistended, bowel sounds present, normal, no organomegaly , no masses palpable. RECTAL EXAM: n ormal tone, no external hemorrhoids, no masses palpable, prostate normal, stool guaiac negative. MALE GENITOURINARY: n ot examined. EXTREMITIES: n o clubbing, cyanosis, or edema. NEUROLOGIC: n onfocal, motor strength normal upper and lower extremities, sensory exam intact. Assessment: * Assessment: 1. A nnual physical exam - Z00.00 (Primary) 2 . B ipolar depression - F31.9 3 .?Smoker - F17.200 4 . C olon cancer screening - Z12.11 5 . D epression screening - Z13.31 Plan: * Treatment: 2. B ipolar depression Notes: has a counsellor and a psychiatrist and is doing well, will continue current regiment ? 3. S catie Notes: said he is thinking about quitting, reinforced need to quit 4. C olon cancer screening L AB: Occult Blood, Stool, Guaiac N egative Value Reference Range O ccult Blood, Stool, Guaiac Neg Notes: guaiac negative??5.?Depression screening? Notes: negative screen??6.?Others? Notes: went over all the results with him?? * Procedure Codes: 8 2270 TEST FOR BLOOD, FECES * Preventive Medicine: Counseling: S moking P atient counseled on the dangers of tobacco use and urged to quit. 0 06/07/2024, P atient Lifestyle Goals p atient is thinking about quitting, T reatment Goals a dvised patient, Cut down by 1 cigarette a week, E xpected Outcome a chieving sustained abstinence from cigarettes, significantly reducing the risk of smoking-related diseases like lung cancer, heart disease, and stroke, experiencing improved lung function, better overall health, and potentially noticing positive changes in taste and smell within a relatively short time frame after quitting, S elf-Managment Goals S uggested patient speak with family/friends about quitting and how they can help, B arriers m ay not be ready to quit, S et a Quit Date s uggested patient set a date in the future to stop smoking. * Follow Up: 6 Months * * Sign off status: Completed true * Provider: Johnny Reddy MD Date: 0 06/07/2024 Generated for Jj aponte/Elly/eTransmitting on: 06/20/2024 01:47 PM EST History and Physical Notes * HPI (History of Present Illness) Category Sub-Category Detail Notes Category Not es Symptom(s) patient is a 38 yo male here for annual visit with review of recent labs and follow up of chronic issues, still with major depression and swinging more rapidly. last changes last month. when he takes the immediate relief it knocks him out Depression Screening PHQ-9 Little inte rest or pleasure in doing things: Several days Feeling down, depressed, or hopeless: Se veral days Trouble falling or staying asleep, or sl eeping too much: Nearly every day Feeling tired or having little energy: N early every day Poor appetite or overeating: Nearly ever y day Feeling bad about yourself o r that you are a failure, or have let yourself or your family down: Several days Trouble concentrating on thi ngs, such as reading the newspaper or watching television: Nearly every day Moving or speaking so slowly that other people could have noticed; or the opposite, being so fidgety or restless that you have been moving around a lot more than usual: Several days Thoughts that you would be b carmen off or of hurting yourself in some way: Not at all Total Score: 16 Interpretation: Moderately Severe Depres beatriz Interpretation and Intervention Depressi on Screening Findings: Positve - Review of PHQ-9 found positive for depression Follow-Up for Depression: : Existing con dition SDOH Questions SDOH Questions In the past year have you been worried about losing housing?: No In the past year have you or any family members you live with been unable to get any of the following when it was really needed? Check all that apply:: None Communication Needs Communication Needs Does the patient have a hearing impairment: No Does the patient have a vision impairmen t?: No Does the patient have a cognition impair ment?: No Examination Category Sub-Category Detail Notes Category Not es General Examination GENERAL APPEARANCE: well dev eloped, well nourished, in no acute distress HEAD: normocephalic, atrau matic EYES: pupils equal, round, reactive to light and accommodation, sclera non-icteric EARS: normal THROAT: clear NECK/THYROID: neck supple, full ra nge of motion, no cervical lymphadenopathy, no bruits HEART: regular rate and rhy thm, S1, S2 normal, no murmurs LUNGS: clear to auscultatio n bilaterally ABDOMEN: soft, nontender, non distended, bowel sounds present, normal, no organomegaly , no masses palpable NEUROLOGIC: nonfocal, motor stre ngth normal upper and lower extremities, sensory exam intact SKIN: warm and dry, no annamaria picious lesions EXTREMITIES: no clubbing, cyanosi s, or edema MALE GENITOURINARY: not examined RECTAL EXAM: normal tone, no exte rnal hemorrhoids, no masses palpable, prostate normal, stool guaiac negative ORAL CAVITY: mucosa moist
--- OUTSIDE RECORDS SUMMARY | 2024-07-02 15:15 | XMS_ITS ---
Author Organization Chava Reddy MD Address [address] [place] [id number] Care Team Providers Care Flat Sorter Processor Name Role Phone Chava Reddy Primary Care Provider [phone] REASON FOR VISIT New Refill Request Medications Medication SIG (Take, Route, Fr equency, Duration) Notes Start Date End Date Status Tadalafil 10 MG 1 tablet as needed O rally Once a day as needed for 30 days 09/19/2020 Active Encounters Encounter Location Date Provider Diagnosis Chava Reddy MD [address] [place] [phone] 07/02/2024 Chava Reddy Erectile dysfunction due to diseases classified elsewhere N52.1 Assessments Encounter Date Diagnosis (ICD Code) Assessment Notes Treatment Notes Treatment Clinical Notes Section Notes 07/02/2024 Erectile dysfunction due to diseases classified elsewhere (ICD-10 - N52.1) Plan Of Treatment Medication Medication Name Sig Start Date Stop Date Notes Tadalafil 10 MG 1 tablet as needed O rally Once a day as needed for 30 days 09/19/2020 Next Appt Details Provider Name:Chava moore, 06/18/2025 07:00:00 AM, [address] [place] [address], [address], [phone], Provider Name:Chava moore, 06/24/2025 09:30:00 AM, [address] [place] [address], [address], [phone], Progress Notes * Kavon MITCHELL SDOB: (38 yo M)Acc No.[id number]:07/02/2024 Patient: Kavon PARRA :1985 A ge:38 Y S ex:Male Address: [address], [place], [address] * Refills Refill Tadalafil Tablet, 10 MG, Orally, 30, 1 tablet as needed, Once a day as needed, 30 days, Refills=3 * true * Date: Generated for Jj aponte/Elly/Chidismitting on: 06/20/2024 01:48 PM EST
--- OUTSIDE RECORDS SUMMARY | 2024-12-10 06:15 | XMS_ITS ---
Author Organization Chava Reddy MD Address [address] [place] [phone] Care Team Providers Care Orthopaedic Doctor Name Role Phone Chava Reddy Primary Care Provider Allergies No Known Allergies REASON FOR VISIT 6 month Medications Medication SIG (Take, Route, Frequency, Duration) Notes Start Date End Date Status SEROquel 300 MG 1 tablet at bedtime Orally Once a day Active LaMICtal 100 MG 1 tablet Orally Once a day Active Wellbutrin SR 150 MG 1 tablet in the mor sanjay Orally Once a day for 30 day(s) 03/03/2020 Not-Taking Tadalafil 10 MG 1 tablet as needed Orally Once a day as needed for 30 days 09/19/2020 Active Ocuflox 0.3 % 1 drop into affected eye Ophthalmic Four times a day for 10 days 12/08/2021 Not-Taki ng Citalopram Hydrobromide 10 MG TAKE 1 TABLET BY MOUTH EVERY DAY FOR 90 DAYS for 90 Active Problems Problem Type SNOMED Code ICD Code Onset Dates Problem Status W/U Status Risk Notes Problem Tobacco user ([id number]) Vaping nicotine dependence, tobacco product (F17.290) Active confirmed Vital Signs Blood pressure systolic 98 mm Hg 12/11/19 25 Blood pressure diastolic 70 mm Hg 025 Height 67 in 12/10/2024 Weight 155 lbs 12/10/2024 BMI 24.27 kg/m2 12/10/2024 weight is down 3 pounds [facility] 06-07-24 Encounters Encounter Location Date Provider Diagnosis Chava Reddy MD [address] [place], [place] [phone] 12/10/2024 Chava Reddy Bipolar depression F31.9 and Vaping nicotine dependence, tobacco product F17.290 Assessments Encounter Date Diagnosis (ICD Code) Assessment Notes Treatment Notes Treatment Clinical Notes Section Notes 12/10/2024 Bipolar depression (ICD-10 - F31.9) is in therapy once a week and sees psychiatrist as well. when he takes the extra dose of seroquel can't function. 12/10/2024 Vaping nicotine dependence, tobacco product (ICD-10 - F17.290) discussed the need to quit. is trying Plan Of Treatment Treatment Notes Assessment Notes Bipolar depression is in therapy once a week and sees psychiatrist as well. when he takes the extra dose of seroquel can't function. Vaping nicotine dependence, tobacco product discussed the need to quit. is trying Next Appt Details Provider Name:Chava Shilpi Rena moore, 06/18/2025 07:00:00 AM, [address] [place] [address], [address], [place], [place], [phone], Provider Name:Chava Shilpi Rena moore, 06/24/2025 09:30:00 AM, [address] [facility], [address], [place], [place], [phone], Progress Notes * Kavon MITCHELL SDOB: (39 yo M)Acc No.[id number]:12/10/2024 Progress Notes Patient: Kavon PARRA Provider: Johnny Reddy MD :1985 A ge:39 Y S ex:Male Date:12/10/2024 Address:[address] [place], [place] [id number] Subjective: * Chief Complaints: * 6 month * HPI: S ymptom(s): patient is a 39 yo male here for 6 month follow up visit/ is doing swell has a lot happening. just bought a new house on [address]. * ROS: G eneral/Constitutional: Denies C hills. D enies F atigue. D enies F ever. D enies H eadache. E NT: Denies S ore throat. R espiratory: Denies C ough. D enies S hortness of breath at rest. D enies S hortness of breath with exertion. G astrointestinal: Herbert Pemberton iarrhea. D enies N ausea. P sychiatric: Admits A nxiety. A dmits D epressed mood. A dmits D ifficulty sleeping. A dmits S tressors. D enies S ubstance abuse. D enies S uicidal thoughts. * Medical History: * Surgical History: * Hospitalization/Major Diagno stic Procedure: * Medications: T akingLaMICtal 100 MG Tablet 1 tablet Orally Once a day SEROquel 300 MG Tablet 1 tablet at bedtime Orally Once a day Citalopram Hydrobromide 10 MG Tablet TAKE 1 TABLET BY MOUTH EVERY DAY FOR 90 DAYS Tadalafil 10 MG Tablet 1 tablet as needed Orally Once a day as needed Taking LaMICtal 100 MG Tablet 1 tablet Orally Once a day Taking SEROquel 300 MG Tablet 1 tablet at bedtime Orally Once a day Taking Citalopram Hydrobromide 10 MG Tablet TAKE 1 TABLET BY MOUTH EVERY DAY FOR 90 DAYS Taking Tadalafil 10 MG Tablet 1 tablet as needed Orally Once a day as needed Not-Taking/PRNOcuflox 0.3 % Solution 1 drop into affected eye Ophthalmic Four times a day Wellbutrin SR 150 MG Tablet Extended Release 12 Hour 1 tablet in the morning Orally Once a day Medication List reviewed and reconciled with the patientNot-Taking/PRN Ocuflox 0.3 % Solution 1 drop into affected eye Ophthalmic Four times a day Not-Taking/PRN Wellbutrin SR 150 MG Tablet Extended Release 12 Hour 1 tablet in the morning Orally Once a day Medication List reviewed and reconciled with the patient * Allergies: N .K.D.A.yes[Allergies Verified] Objective: * Vitals: H t: 67, Wt: 155, BMI:24.27, BP:98/70, Wt-k.31. weight is down 3 pounds since 06-07-24. * Examination: G eneral Examination: GENERAL APPEARANCE: a lert, well hydrated, in no distress.? HEAD: n ormocephalic. SKIN: g ood turgor. HEART: r egular rate and rhythm, no murmurs, rubs, gallops.? LUNGS: n o wheezes, rales, rhonchi, good air movement, clear to auscultation bilaterally. Assessment: * Assessment: 1. B ipolar depression - F31.9 (Primary) 2 . V aping nicotine dependence, tobacco product - F17.290 Plan: * Treatment: 2. V aping nicotine dependence, tobacco product Notes: discussed the need to quit. is trying * Procedure Codes: * * Sign off status: Completed true * Provider: Johnny Reddy MD Date: 0 12/10/2024 Generated for Jj aponte/Elly/Leonaitting on: 1 06/20/2024 01:47 PM EST History and Physical Notes * HPI (History of Present Illness) Category Sub-Category Detail Notes Category Not es Symptom(s) patient is a 39 yo male here for 6 month follow up visit/ is doing swell has a lot happening. just bought a new house on [address] Examination Category Sub-Category Detail Notes Category Not es General Examination GENERAL APPEARANCE: alert, w ell hydrated, in no distress HEAD: normocephalic HEART: regular rate and rhy thm, no murmurs, rubs, gallops LUNGS: no wheezes, rales, r honchi, good air movement, clear to auscultation bilaterally SKIN: good turgor
--- NOTE | ~2025-04-20 | CT_ITS ---
CLINICAL HISTORY: fall, head strike, pain CT cervical spine without contrast. COMPARISON: None provided. FINDINGS: Straightening of the normal cervical lordosis, likely positional. 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 Vertebral body heights are maintained. No evidence of acute vertebral body injury. Visualized paravertebral soft tissues are unremarkable. C4-5: Uncovertebral joint hypertrophy. No significant neural foraminal narrowing. Remaining cervical levels are without significant degenerative changes. IMPRESSION: 1. No evidence of acute injury to the cervical spine. This document has been electronically signed by: Sinan Machado MD on 04/20/2025 14:58:27
--- NOTE | ~2025-04-20 | CT_ITS ---
CLINICAL HISTORY: fall, head strike, pain CT head without contrast. COMPARISON: None provided. FINDINGS: The visualized paranasal sinuses are clear. The mastoid air cells are clear. No calvarial fracture. No evidence for mass or mass effect. No intracranial hemorrhage or abnormal extra-axial fluid collection. No evidence of hydrocephalus. The basilar cisterns are patent. Posterior fossa appears unremarkable. IMPRESSION: 1. No acute intracranial findings. This document has been electronically signed by: Sinan Machado MD on 04/20/2025 14:58:37
--- NOTE | 2025-04-20 13:19 | ED_ITS ---
HPI - General Adult General Chief complaint: Wound/Laceration Stated complaint: mechanical fall, ?loc Time Seen by Provider: 04/20/25 13:18 Source: patient and EMS Mode of arrival: EMS Limitations: no limitations History of Present Illness ED Provider: Linn López PA-C HPI narrative: Patient is a 39 year old assigned male at with no reported medical history presenting to the emergency department today with right forehead laceration after a trip and fall. Patient [place] when he tripped and landed on his face. Patient states that he is unsure if he lost consciousness and he is unsure of his last tetanus shot. Patient denies any other complaints at this time. Related Data Previous Rx's ?Medication ?Instructions ?Recorded cephalexin 500 mg capsule 500 mg PO QID 7 days #28 cap s 02/12/21 doxycycline hyclate 100 mg capsule 100 mg PO BID #14 c aps 02/12/21 amoxicillin 875 mg-potassium 1 tab PO BID 5 days #10 t abs 04/20/25 clavulanate 125 mg tablet Allergies Allergy/AdvReac Type Severity Reaction Status Date / Time No Known Allergies Allergy Unverified 04/20/25 13:35 Review of Systems 2 Constitutional: Constitutional: Reports as per HPI Eyes: Eyes: Reports as per HPI ENT: Reports as per HPI Cardiovascular: Cardiovascular: Reports as per HPI Respiratory: Respiratory: Reports as per HPI Gastrointestinal: Gastrointestinal: Reports as per HPI Genitourinary: Genitourinary: Reports as per HPI Musculoskeletal: Musculoskeletal: Reports as per HPI Integumentary/Breasts: Skin/Breast: Reports as per HPI Neurologic: Reports as per HPI Psychiatric: Psychiatric: Reports as per HPI Endocrine: Endocrine: Reports as per HPI Hematologic/Lymphatic: Hematologic/Lymphatic: Reports as per HPI Allergic/Immunologic: Allergic/Immunologic: Reports as per HPI PMF Past Medical History Attestation statement: The following information was validated with the patient. Source: old records reviewed and nursing notes reviewed Medical History No known health problems Social History Social History Alcohol intake: current Alcohol intake frequency: holidays/special occasions only Smoked in Last 30 Days: No Use of substances other than those prescribed or required for medical reasons: No Advance Directives: No Advance Directives Information Provided: No Do you have a plan to hurt others: No Plan Physical Exam ED Vital Signs: Vital Signs - 24 hr 04/20/25 13:26 04/20/25 13:33 04/20/25 15:33 Temperature 98.0 F 97.7 F 97.7 F Pulse Rate 75 72 72 Respiratory Rate 18 18 18 Blood Pressure 137/88 133/70 133/70 Pulse Oximetry 98 98 98 Oxygen Delivery Method Room Air Room Air Room Air BMI result Body Mass Index 24.3 Const General: cooperative, no acute distress, alert and awake Nutritional Appearance: well nourished Orientation/consciousness: patient oriented x3 [facility] Head images: 2 1. 2.5cm laceration - no active bleeding Ears: hearing grossly normal bilaterally and external ears normal General nose exam: Normal external nose present, no nasal discharge noted and no epistaxis Mouth: Normal oral and palatal mucosa present, no drooling and no muffled voice Eyes General: appearance normal, both eyes and all related structures Periorbital: periorbital findings normal Eyelids: Yes eyelids normal Conjunctivae: conjunctivae normal Pupils: Equal, round and reactive pupils present EOM: EOMs intact bilaterally Neck Neck: Yes normal visual inspection and Yes full ROM Resp Effort & Inspection: normal respiratory effort and able to speak in complete sentences Neuro General: patient oriented x3, moves all extremities and CN's II-XI intact bilaterally Cranial nerves: Yes Equal, round and reactive pupils present Cognition (Neuro): normal cognition Extrem General: Yes normal to inspection, Yes full ROM and Yes capillary refill normal Psych Appearance: grossly normal Mental Status: mental status grossly normal Affect: normal affect Attitude: cooperative Thought process: Normal thought process present Thought content: Normal thought content present Insight: Good insight present (Psych) Medications Administered Discontinued Medications Generic Name Dose Route Start Last Admin Trade Name Freq PRN Reason Stop Dose Admin Diphtheria/Tetanus/Acell Pertussis 0.5 ml 04/20/25 13:20 04/20/25 13:32 Diphth,Pertus(Acell),Tet Adult 0.5 Ml Syringe IM 04/20/25 13:21 0.5 ml .ONCE ONE Administration Lidocaine HCl 15 ml 04/20/25 13:20 04/20/25 13:31 Lidocaine Hcl 1 % Mpf 5 Ml Vial SUBCUT 04/20/25 13:21 15 ml ONCE ONE Administration Procedures Laceration Right eyebrow laceration: Site: face Side (If applicable): right Size (cm): 2.5 Description: linear Depth: simple, single layer Local Anesthetic: lidocaine 1% Amount of anesthesia used (mL): 10 Pre-repair: wound explored, irrigated extensively and deep structures intact Skin layer closed with: other (prolene) Size (cm): 6-0 Number of sutures: 5 Technique: simple, interrupted Medical Decision Making Medical Decision Making MDM Narrative: Patient is a 39 year old assigned male at with no reported medical history presenting to the emergency department today with right forehead laceration after a trip and fall. Patient's physical exam was as noted in the physical exam portion of this note. Patient's CT head / c-spine showed no acute process. I explained my physical exam findings as well as all test results to the patient. I answered all questions asked by the patient. Patient's laceration was repaired, without incident. Patient was brought up to date on his tetanus status. Given this is a facial laceration and the mechanism of injury - patient prescribed a prophylactic antibiotic. I stressed the importance of the patient taking his medication as directed (either prescribed or as the over the counter packaging recommends). I stressed the importance of the patient following up with his primary care provider. I stressed the importance of the patient returning to the emergency department immediately if his symptoms were to worsen or if he were to develop any dizziness, shortness of breath, difficulty breathing, chest pain, blurry vision, loss of vision, nausea, vomiting, abdominal pain, fever, chills, back pain, or any other complaints. Patient verbalized agreement and understanding with this treatment plan and discharge. Differential Diagnosis Differential Diagnoses: The differential diagnosis associated with the presentation includes Facial laceration Eyebrow laceration Trip and fall Cervical strain Cervical fracture Intracranial hemorrhage Admission/Observation Consideration of admission/observation: Escalation of care including admission/observation considered Patient would have been admitted to the hospital had his work up had any findings where hospital admission was appropriate and his clinical presentation warranted hospital admission. Independent Interpretation I performed an independent interpretation of an: CT Scan Interpretation: My interpretation is in agreement with the radiologist's impression of these imaging studies as written below. CLINICAL HISTORY: fall, head strike, pain CT head without contrast. COMPARISON: None provided. FINDINGS: The visualized paranasal sinuses are clear. The mastoid air cells are clear. No calvarial fracture. No evidence for mass or mass effect. No intracranial hemorrhage or abnormal extra-axial fluid collection. No evidence of hydrocephalus. The basilar cisterns are patent. Posterior fossa appears unremarkable. IMPRESSION: 1. No acute intracranial findings. This document has been electronically signed by: Sinan Machado MD on 04/20/2025 14:58:37 Dictated By: Sinan Machado MD Signed By: Electronically signed by Sinan Machado MD 04/20/25 0259 CLINICAL HISTORY: fall, head strike, pain CT cervical spine without contrast. COMPARISON: None provided. FINDINGS: Straightening of the normal cervical lordosis, likely positional. 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 Vertebral body heights are maintained. No evidence of acute vertebral body injury. Visualized paravertebral soft tissues are unremarkable. C4-5: Uncovertebral joint hypertrophy. No significant neural foraminal narrowing. Remaining cervical levels are without significant degenerative changes. IMPRESSION: 1. No evidence of acute injury to the cervical spine. This document has been electronically signed by: Sinan Machado MD on 04/20/2025 14:58:27 Dictated By: Sinan Machado MD Signed By: Electronically signed by Sinan Machado MD 04/20/25 8656 Radiology Impression Discussion of test interpretation with radiology: I have reviewed the radiologist's reading. Independent Historian Clinical information obtained from an independent historian. History obtained from or confirmed by: EMS (EMS provided additional history and confirmed the history provided by the patient. ) Prescription Management I considered prescription management with: Antibiotic (patient prescribed a prophylactic antibiotic as noted in the MDM Rationale portion of this note. ) Discharge Plan Discharge Clinical Impression: Eyebrow laceration Qualifiers: Encounter type: initial encounter Laterality: right Qualified Code(s): S01.111A - Laceration without foreign body of right eyelid and periocular area, initial encounter Fall Qualifiers: Encounter type: initial encounter Qualified Code(s): W19.XXXA - Unspecified fall, initial encounter Patient Disposition: Home, Self-Care Instructions: Care For Your Stitches (DC), Fall Prevention (ED), Facial Laceration (ED) Additional Instructions: Your laceration was repaired with (5) sutures. It is normal for the wound to ooze blood over the next few hours. IF the bleeding becomes excessive or you become concerned, please do not hesitate to return to the emergency department. Have these sutures removed in 7-10 days. They can be removed by your primary care provider, at any urgent care by their provider, or at any emergency department by any of their providers. You have been prescribed a prophylactic antibiotic - please take this as prescribed. Do NOT soak the affected area. Avoid ALL bodies of water - this including pools, lakes, eddy, oceans, streams, puddles, etc. until your sutures have been removed and the wound has F ULLY healed (no open areas, no scabbing). IF you are concerned about scarring, once the sutures have been removed and the scabbing has fallen away - apply sunscreen to the area every day for 1 full year . IF you are prescribed home medications and/or you are taking over the counter medications at home - it is very important you continue to do so as prescribed / directed unless told otherwise by a healthcare provider. Follow up with your primary care provider. Do your best to stay well hydrated and rest. Return to the emergency department immediately if your symptoms worsen or if you develop any numbness, tingling, dizziness, shortness of breath, difficulty breathing, chest pain, blurry vision, loss of vision, nausea, vomiting, abdominal pain, fever, chills, back pain, or any other complaints. Please see the information below about our Patient Portal. If you are not yet enrolled in the [facility] Patient Portal, you will receive an enrollment email invitation following your visit to any [facility] setting. You may also self-enroll in the Patient Portal by visiting our website: [email or web address] The following information is required to access the Patient Portal: - Your [facility] Medical Record Number - Your personal home email address (must match what is in your electronic medical record, Registration staff can assist with this) - Name - Date of Capabilities of the Patient Portal: - Message some providers - View upcoming appointments - Access your health summary, medical history, and visit history - View current conditions and allergies - View procedure and lab results - View your medications, including guidelines, side effects, and precautions - Complete pre-appointment questionnaires requested by your provider - Ready summary reports of your office visits and procedures To access the Patient Portal Mobile [employer], follow these directions: - Search [employer] in the [employer] Store or [employer] Store - Download the [employer] - Search for [facility] - Enter your login/password Prescriptions: New amoxicillin-pot clavulanate 875-125 mg tablet 1 tab PO BID 5 Days Qty: 10 0RF No Action doxycycline hyclate 100 mg capsule 100 mg PO BID Qty: 14 0RF cephalexin 500 mg capsule 500 mg PO QID 7 Days Qty: 28 0RF Referrals: Chava Reddy MD [Primary Care Provider, Medical] Interventions: ED Discharge Assessment Last Done: 04/20/25 15:33 Discharge Date/Time: 04/20/25 15:33 Print Language: Amharic
[2025-04-20 13:23] VITALS: BP 150/90; PULSE 72; O2SAT 95
[2025-04-20 13:26] VITALS: BP 137/88; PULSE 75; RESP 18; TEMP 36.7; O2SAT 98
[2025-04-20] MEDS: Lidocaine HCl 1 % MPF 5 ML VIAL 15 ML SUBCUT (13:31)
[2025-04-20] MEDS: Diphth,Pertus(ACell),Tet Adult 0.5 ML SYRINGE IM (13:32)
[2025-04-20 13:33] VITALS: BP 133/70; PULSE 72; RESP 18; TEMP 36.5; O2SAT 98; BMI 24.3
--- OUTSIDE RECORDS SUMMARY | 2025-04-20 13:48 | XMS_ITS | Patient Health Record ---
Author Organization Chava Reddy MD Address [address] [place], [place] [id number] Care Team Providers Care [employer] Name Role Phone Chava Reddy Primary Care Provider [phone] Allergies No Known Allergies Results Component Value Reference Range Notes Occult Blood, Stool, Guaiac Reviewed date:06/07/2024 03:28:24 PM Interpretation:Negative Performing Lab: Notes/Report: Negative Occult Blood, Stool, Guaiac Neg Reason For Referral No Information Medications Medication SIG (Take, Route, Frequency, Duration) Notes Start Date End Date Status SEROquel 300 MG 1 tablet at bedtime Orally Once a day Active Citalopram Hydrobromide 10 MG TAKE 1 TABLET BY MOUTH EVERY DAY FOR 90 DAYS for 90 Active LaMICtal 100 MG 1 tablet Orally [...] day for 10 days 12/08/2021 Not-Taki ng Immunizations Vaccine Route Administration Date Status Comme nts Fluarix Quadrivalent IM Intramuscular 04/06/2016 Administe red Fluarix Quadrivalent IM Intramuscular 02/03/2017 Administe red Fluarix Quadrivalent IM Intramuscular 02/06/2018 Administe red Fluarix Quadrivalent IM Intramuscular 02/12/2019 Administe red Fluarix Quadrivalent IM Intramuscular 02/25/2020 Administe red Fluarix Quadrivalent IM Intramuscular 05/18/2021 Administe red Covid Vaccine Unknown 12/08/2020 Administered Juan Martinez TDaP Unknown 02/13/2018 Refused Social History Tobacco Use: Social History Observation [...] about q uitting Additional Findings: Tobacco User Chitra t cigarette smoker, not currently using another form of tobacco Alcohol Screen Question Answer Notes Did you have a drink containing alcohol in the p ast year? No Points 0 Interpretation Negative Section Notes: alcohol free 01-10-2022 alcohol free 01-10-2022 Patie nt vapes QD Problems Problem Type SNOMED Code ICD Code Onset Dates Problem Status W/U Status Risk Notes Problem 16556363 Varicose veins of bilateral lower extremities with pain (I83.813) Active confirmed Problem 970709973 Erectile dysfunction due to diseases classified elsewhere (N52.1) Active confirmed Problem 27002406 Smoker (F17.200) Active confirmed Problem Attention deficit disorder (84450524) ADD (attention deficit disorder) (F90.0) Active confirmed Problem 34780650 Dysthymia (F34.1) Active confirmed Problem Abnormal radiologic findings on diagnostic imaging of right testicle (R93.811) Active confirmed Problem 20423984 Obsessional thoughts (F42.8) Active confirmed Problem Tobacco user (365329907) Vaping nicotine dependence, tobacco product (F17.290) Active confirmed Vital Signs Blood pressure diastolic 70 mm Hg 12/10/2024 leeann ght is down 3 pounds since 06-07-24 Height 67 in 12/10/2024 weight is down 3 pounds since 06-07-24 Blood pressure systolic 98 mm Hg 12/10/2024 weig ht is down 3 pounds since 06-07-24 Weight 155 lbs 12/10/2024 weight is down 3 pounds since 06-07-24 BMI 24.27 kg/m2 12/10/2024 weight is down 3 pounds since 06-07-24 Encounters Encounter Location Date Provider Diagnosis Chava Reddy MD [address] [place], [place] [phone] 06/07/2024 Chava Reddy Bipolar depression F31.9 ; Annual physical exam Z00.00 ; Smoker F17.200 ; Colon cancer screening Z12.11 and Depression screening Z13.31 Chava Reddy MD [address] [place] [address] [address] [place] [id number] 12/10/2024 Chava Reddy Bipolar depression F31.9 and Vaping nicotine dependence, tobacco product F17.290 Chava Reddy MD [address] [place] [id number] 07/02/2024 Chava Reddy Erectile dysfunction due to diseases classified elsewhere N52.1 Assessments Encounter Date Diagnosis (ICD Code) Assessment Notes Treatment Notes Treatment Clinical Notes Section Notes 06/07/2024 Bipolar depression (ICD-10 - F31.9) has a counsellor and a psychiatrist and is doing well, will continue current regiment 06/07/2024 Annual physical exam (ICD-10 - Z00.00) labs reviewed and discussed with patient 12/10/2024 Bipolar depression (ICD-10 - F31.9) is in therapy once a week and sees psychiatrist as well. when he takes the extra dose of seroquel can't function. 12/10/2024 Vaping nicotine dependence, tobacco product (ICD-10 - F17.290) discussed the need to quit. is trying 07/02/2024 Erectile dysfunction due to diseases classified elsewhere (ICD-10 - N52.1) 06/07/2024 Smoker (ICD-10 - F17.200) said he is thinking about quitting, reinforced need to quit 06/07/2024 Colon cancer screening (ICD-10 - Z12.11) guaiac negative 06/07/2024 Depression screening (ICD-10 - Z13.31) negative screen 06/07/2024 Other went over all the results with him Plan Of Treatment Pending Test Test Name Order Date US SCROTUM TESTICLE 12/25/2021 Next Appt Details Provider Name:Chava moore, 06/18/2025 07:00:00 AM, [address], [address], [place], [place], [id number], Provider Name:Chava moore, 06/24/2025 09:30:00 AM, [address], [address], [place], [place], [phone], Insurance Providers Payer Name Payer Address Payer Phone Subscriber Number Group Number Insured Name Patient Relationship to Insured Coverage Start Date Coverage End Date [employer] [facility] [address] [place], [place] [phone] [id number] [facility] Kavon Mitchell Self - patient is the insured Medical (General) History Medical History History ICD Code Testicular nodule N50.89
[2025-04-20 15:33] VITALS: BP 133/70; PULSE 72; RESP 18; TEMP 36.5; O2SAT 98
== END 2025-04-20 15:33 | disposition home or self-care (01) ==
PROVIDERS: Emergency Provider Emergency Medicine Emergency Medical Services; PCP Internal Medicine
DX: S01.111A Laceration without foreign body of right eyelid and periocular area, initial encounter (principal); R51.9 Headache, unspecified; M54.2 Cervicalgia; X58.XXXA Exposure to other specified factors, initial encounter; W01.0XXA Fall on same level from slipping, tripping and stumbling without subsequent striking against object, initial encounter; Y93.89 Activity, other specified; Y92.59 Other trade areas as the place of occurrence of the external cause; Y99.8 Other external cause status; Z23 Encounter for immunization
CPT/HCPCS: 12011; 70450; 72125; 90471; 90715; 99284; J2003

== ENCOUNTER → 2025-04-20 13:20 | Outpatient (BNV) | payer BC, SELFPAY | PROVIDERS: PCP Internal Medicine; Visit Provider Radiology Diagnostic Radiology | DX: S09.90XA Unspecified injury of head, initial encounter (principal); R51.9 Headache, unspecified; Z04.3 Encounter for examination and observation following other accident | CPT/HCPCS: 70450; 72125 ==